=== PATIENT | female | born 1980 | race Caucasian/White ===

== ENCOUNTER 2023-11-06 08:05 | Outpatient (OUT) | payer BC, SELFPAY ==
[2023-11-06 08:18] LABS: Basophils Absolute Auto 0.1 10^3/uL (0.0-0.1); Basophils Percent Auto 0.9 % (0.2-2.0); Eosinophils Absolute Auto 0.1 10^3/uL (0.0-0.7); Eosinophils Percent Auto 1.1 % (0.9-7.0); Hematocrit 43.7 % (36.0-48.0); Hemoglobin 14.5 g/dL (12.0-16.0); Immature Granulocytes Abs Auto 0.02 10^3/uL (0.00-0.03); Immature Granulocytes Pct Auto 0.4 % (0.0-0.5); Lymphocytes Absolute Auto 1.5 10^3/uL (1.2-3.8); Lymphocytes Percent Auto 28.5 % (20.5-60.0); Mean Corpuscular HGB Conc 33.2 g/dL (29.9-35.2); Mean Corpuscular Hemoglobin 30.9 pg (26.7-34.0); Mean Corpuscular Volume 93.2 fL (81.0-99.0); Mean Platelet Volume 9.9 fL (9.5-13.5); Monocytes Absolute Auto 0.6 10^3/uL (0.3-0.8); Monocytes Percent Auto 11.2 % (1.7-12.0); Neutrophils Absolute Auto 3.1 10^3/uL (1.4-6.5); Neutrophils Percent Auto 57.9 % (43.0-75.0); Platelet Count 201 10^3/uL (150-450); Red Blood Count 4.69 10^6/uL (4.20-5.40); Red Cell Distribution Width 13.3 % (11.0-15.0); White Blood Count 5.3 10^3/uL (4.0-11.0)
[2023-11-06 08:56] LABS: Alanine Aminotransferase 38 U/L (14-59); Albumin Level 3.5 g/dL (3.4-5.0); Alkaline Phosphatase 118 U/L (46-116); Anion Gap 13.8; Aspartate Amino Transferase 21 U/L (15-37); BUN Creatinine Ratio 7.5; Bilirubin Total 0.5 mg/dL (0.2-1.0); Calcium 8.7 mg/dL (8.5-10.1); Carbon Dioxide 24.5 mmol/L (21.0-32.0); Chloride 105 mmol/L (98-107); Estimated GFR (African America >60 (>=60); Estimated GFR (Non-African Ame >60 (>=60); Globulin 3.6 g/dL; Glucose 100 mg/dL (74-106); Potassium 4.3 mmol/L (3.5-5.1); Sodium 139 mmol/L (136-145); Total Protein 7.1 g/dL (6.4-8.2)
[2023-11-06 11:53] LABS: Occult Blood Negative
[2023-11-06 12:19] LABS: C. Difficile PCR NEGATIVE (NEGATIVE)
[2023-11-11 01:07] LABS: Lactoferrin, Fecal, Quant. <1.00 ug/mL(g) (0.00-7.24)
[2023-11-12 15:11] LABS: Ova + Parasite Exam Final report (.)
== END 2023-11-06 08:06 | disposition home or self-care (01) ==
LOC: LAB 08:05
PROVIDERS: PCP Family Medicine; Visit Provider Family Medicine
DX: R19.7 Diarrhea, unspecified (principal)
CPT/HCPCS: 36415; 80053; 83631; 85025; 87045; 87046; 87177; 87209; 87425; 87427; 87493; 87798; G0328

== ENCOUNTER 2023-12-21 14:39 | Outpatient (OUT) | payer BC, SELFPAY ==
--- NOTE | 2023-12-21 | XR_ITS ---
The [address] [address] Patient Name: BARI MUNOZ MRN: [id number] date: 1980 Sex: F Assigned Patient Location: Current Patient Location: Accession/Order Number: [id number] Exam Date: 12/21/2023 14:50 Report Date: 12/21/2023 16:15 At the request of: MARVEL HINES Procedure: XR foot RT min 3V PROCEDURE: XR foot RT min 3V COMPARISON: None. HISTORY: RIGHT FOOT PAIN FINDINGS: BONES:No fracture, acute abnormality, or significant arthropathy. Mild enthesopathic spurring plantar calcaneus SOFT TISSUES:Negative. No visible soft tissue swelling. EFFUSION:None visible. OTHER: Negative. XR/XR foot RT min 3V IMPRESSION: No acute radiographic abnormality Electronically authenticated by: CJ DELGADO Date: 12/21/2023 16:15
== END 2023-12-21 14:40 | disposition home or self-care (01) ==
LOC: EC 14:39
PROVIDERS: PCP Family Medicine; Visit Provider Podiatrist Foot & Ankle Surgery
DX: M79.671 Pain in right foot (principal)
CPT/HCPCS: 73630

== ENCOUNTER 2023-12-29 06:52 | Outpatient (RCR) | payer BC, SELFPAY | END 2024-01-08 16:22 | disposition home or self-care (01) | LOC: PT 06:52 | PROVIDERS: PCP Family Medicine; Visit Provider Podiatrist Foot & Ankle Surgery | DX: G57.51 Tarsal tunnel syndrome, right lower limb (principal); M79.671 Pain in right foot | CPT/HCPCS: 97110; 97161; 97530 ==